=== PATIENT | female | born 1985 ===

== ENCOUNTER 2017-12-14 15:09 | Emergency (ER) | payer OTHER ==
[2017-12-14 15:17] VITALS: BMI 23.0
[2017-12-14 15:36] VITALS: TEMP 98.3
--- NOTE | 2017-12-14 15:40 | ED PDOC ---
Arrival/HPI - General Chief Complaint: Shortness Of Breath Time Seen by Provider: 12/14/17 15:14 - History of Present Illness Narrative History of Present Illness (Text): 32 y/o F c no PMHx p/w episodes of anxiety, shortness of breath, chest tightness , headaches. The patient is from [place] and the symptoms began after her was stationed in [place]. She had another panic attack while on the plane to the area. She states she has been alone a lot in the new apartment and it is lonely. She denies suicidal or homicidal ideations. Denies hallucinations. Between the panic attacks, the patient does not have any chest pain, dyspnea, or other symptoms. Past Medical History - Cardiac Hx Cardiac Disorders: No - Pulmonary Hx Respiratory Disorders: No - Neurological Hx Migraine: Yes - HEENT Hx HEENT Disorder: No - Renal Hx Renal Disorder: No - Endocrine/Metabolic Hx Endocrine Disorders: No - Hematological/Oncological Hx Blood Disorders: No - Integumentary Hx Dermatological Disorder: No - Musculoskeletal/Rheumatological Hx Musculoskeletal Disorders: No - Gastrointestinal Hx Gastrointestinal Disorders: No - Genitourinary/Gynecological Hx Genitourinary Disorders: No - Psychiatric Hx Psychophysiologic Disorder: Yes Hx Substance Use: No Other/Comment: panic attacks. Family/Social History Family/Social History: No Known Family HX Smoking Status: Never Smoked Hx Alcohol Use: No Hx Substance Use: No Allergies/Home Meds Allergies/Adverse Reactions: Allergies No Known Allergies Allergy (Verified 12/14/17 15:17) Home Medications: Home Meds Medication Instructions Recorded Confirmed No Known Home Med 12/14/17 12/14/17 Review of Systems - Physician Review All systems were reviewed & negative as marked: Yes - Review of Systems Constitutional: absent: Fevers Gastrointestinal: absent: Vomiting Physical Exam - Physical Exam Narrative Physical Exam (Text): Gen: NAD Head: NC/AT Eyes: PERRL ENT: MMM Neck: Supple Chest: No tenderness CV: Regular rate Lungs: CTA b/l Abd: Soft, NT Back: No CVA tenderness Extremities: No swelling Skin: No rash Neuro: Alert, CN II to XII intact, motor 5/5 x 4, no focal deficit Vital Signs Temp Pulse Resp BP Pulse Ox 12/14/17 17:27 83 18 99/61 L 98 12/14/17 15:28 18 98 12/14/17 15:26 98.3 F 85 18 132/69 100 Medical Decision Making ED Course and Treatment: EKG NSR 80 bpm, no T/T wave changes CXR no acute disease. Labs unremarkable. Patient with likely adjustment disorder. No indication for emergent psychiatric evaluation. PES set patient up with outpatient appointment. - Lab Interpretations Lab Results: 12/14/17 15:47 12/14/17 15:47 Lab Results 12/14/17 16:30: Urine Opiates Screen Negative, Urine Methadone Screen Negative, Ur Barbiturates Screen Positive H, Ur Phencyclidine Scrn Negative, Ur Amphetamines Screen Negative, U Benzodiazepines Scrn Negative, U Oth Cocaine Metabols Negative, U Cannabinoids Screen Negative 12/14/17 16:30: Urine Color Yellow, Urine Appearance Clear, Urine pH 6.0, Ur Specific [place] 1.020, Urine Protein Negative, Urine Glucose (UA) Negative, Urine Ketones Trace H, Urine Blood Small H, Urine Nitrate Negative, Urine Bilirubin Negative, Urine Urobilinogen 0.2, Ur Leukocyte Esterase Negative, Urine RBC 5 - 10, Urine WBC 0 - 2, Ur Epithelial Cells 4 - 5, Urine Bacteria Small, Urine HCG, Qual Negative 12/14/17 15:47: Alcohol, Quantitative < 10 12/14/17 15:47: Salicylates < 1 L, Acetaminophen < 10.0 L 12/14/17 15:47: Sodium 141, Potassium 4.1, Chloride 103, Carbon Dioxide 26, Anion Gap 16, BUN 14, Creatinine 0.6 L, Est GFR ( Amer) > 60, Est GFR ( Non-Af Amer) > 60, Random Glucose 137 H, Calcium 9.9, Total Bilirubin 0.4, AST 22, ALT 30, Alkaline Phosphatase 70, Total Protein 7.9, Albumin 4.5, Globulin 3.5, Albumin/Globulin Ratio 1.3 12/14/17 15:47: WBC 6.3, RBC 4.66, Hgb 12.3, Hct 36.0, MCV 77.3 L, MCH 26.4, MCHC 34.2, RDW 13.6, Plt Count 207, MPV 9.2, Gran % 72.4 H, Lymph % (Auto) 18.4 L, Arthur % (Auto) 7.3 H, Eos % (Auto) 1.6, Baso % (Auto) 0.3, Gran # 4.53, Lymph # (Auto) 1.2, Arthur # (Auto) 0.5, Eos # (Auto) 0.1, Baso # (Auto) 0.02 - RAD Interpretation Radiology Orders: 12/14/17 15:36 CHEST TWO VIEWS (PA/LAT) [RAD] Stat Disposition/Present on Arrival - Present on Arrival Any Indicators Present on Arrival: No History of DVT/PE: No History of Uncontrolled Diabetes: No Urinary Catheter: No History of Decub. Ulcer: No History Surgical Site Infection Following: None - Disposition Have Diagnosis and Disposition been Completed?: Yes Diagnosis: Anxiety Disposition: HOME/ ROUTINE Disposition Time: 17:30 Patient Plan: Discharge Condition: STABLE Discharge Instructions (ExitCare): Anxiety, Adult (DC), Adjustment Disorder Referrals: PCP,NO [Primary Care Provider] - Follow up with primary Forms: [employer] (Solomon Islander)
[2017-12-14 16:17] LABS: ALB/GLOB RATIO 1.3 (1.1-1.8); ALBUMIN 4.5 g/dL (3.0-4.8); ALT/SGPT 30 U/L (7-56); AST/SGOT 22 U/L (14-36); BLOOD UREA NITROGEN 14 mg/dL (7-21); CALCIUM 9.9 mg/dL (8.4-10.5); GFR AFRICAN-AMERICAN > 60; GFR NON-AFRICAN AMERICAN > 60
[2017-12-14 16:19] LABS: ACETAMINOPHEN < 10.0 ug/ml (10.0-20.0); SALICYLATE < 1 mg/dL (2.0-20.0)
[2017-12-14 16:20] LABS: BASO # 0.02 K/mm3 (0.0-2.0); BASO % 0.3 % (0.0-3.0); EOS # 0.1 (0.0-0.7); EOS % 1.6 % (1.5-5.0); GRAN # 4.53 (1.4-6.5); GRAN % 72.4 % (50.0-68.0); HEMOGLOBIN 12.3 g/dL (12.0-16.0); LYMPH # 1.2 (1.2-3.4); LYMPH % 18.4 % (22.0-35.0); MEAN CELL VOLUME 77.3 fl (80.0-105.0); MEAN CORPUSCULAR HEMOGLOBIN 26.4 pg (25.0-35.0); MEAN CORPUSCULAR HGB CONC 34.2 g/dl (31.0-37.0); MEAN PLATELET VOLUME 9.2 fl (7.0-11.0); MONO # 0.5 (0.1-0.6); MONO % 7.3 % (1.0-6.0); RBC 4.66 10^6/uL (3.5-6.1); RED CELL DISTRIBUTION WIDTH 13.6 % (11.5-14.5); WHITE BLOOD COUNT 6.3 10^3/ul (4.5-11.0)
[2017-12-14 16:54] LABS: URINE BILIRUBIN NEGATIVE (NEGATIVE); URINE BLOOD SMALL (NEGATIVE); URINE GLUCOSE (UA) NEGATIVE (NEGATIVE); URINE LEUKOCYTE ESTERASE NEGATIVE Leu/uL (NEGATIVE); URINE PROTEIN NEGATIVE mg/dL (<30 mg/dL); URINE UROBILINOGEN 0.2 E.U./dL (<1 E.U./dL)
[2017-12-14 16:55] LABS: URINE APPEARANCE CLEAR (CLEAR); URINE COLOR YELLOW (YELLOW)
[2017-12-14 16:56] LABS: HCG,QUALITATIVE URINE NEGATIVE (NEGATIVE)
[2017-12-14 17:02] LABS: URINE WBC 0 - 2 /hpf (0-6)
[2017-12-14 17:03] LABS: URINE BACTERIA SMALL (NEG)
[2017-12-14 17:15] LABS: BARBITURATES, UR POSITIVE (NEGATIVE); BENZODIAZEPINES, UR NEGATIVE (NEGATIVE); OPIATES, UR NEGATIVE (NEGATIVE); PHENCYCLIDINE, UR NEGATIVE (NEGATIVE)
[2017-12-14 17:31] VITALS: BP 99/61
[2017-12-14 17:43] VITALS: PULSE 82; RESP 19; O2SAT 99
--- NOTE | 2017-12-15 11:29 | CARD ---
APPROVED REPORT EKG Measurement Heart [id number] <Conclusion> Normal sinus rhythm Nonspecific T wave abnormality
== END 2017-12-14 17:43 | disposition home or self-care (01) ==
LOC: ED 15:09
DX: F41.9 Anxiety disorder, unspecified (principal)

== ENCOUNTER 2017-12-16 01:16 | Emergency (ER) | payer OTHER ==
[2017-12-16 01:16] VITALS: BMI 23.0
[2017-12-16 01:26] VITALS: PULSE 75
--- NOTE | 2017-12-16 01:45 | ED PDOC ---
Arrival/HPI - General Chief Complaint: Chest Pain Time Seen by Provider: 12/16/17 01:25 Historian: Patient - History of Present Illness Narrative History of Present Illness (Text): 12/16/17 01:38 Kenyetta Escalona is a 32 year old female, whose past medical history includes anxiety, who presents to the Emergency department complaining of palpitations. Patient states she was having trouble falling asleep tonight and took 1 Hydroxyzine 50 mg given to her by her mother a few days prior in [place]. Patient states after taking the medication she developed palpitations and chest discomfort. Patient was seen in the ER on 12/14/2017 for similar complaints, seen by PES, and instructed to follow-up outpatient for anxiety. Patient denies any oral contraceptive use, fever, chills, shortness of breath, abdominal pain, vomiting, headache, dizziness, or any other complaints. Time/Duration: Other (tonight) Symptom Onset: Gradual Symptom Course: Unchanged Activities at Onset: Light Context: Home Past Medical History - Provider Review Nursing Documentation Reviewed: Yes - Cardiac Hx Cardiac Disorders: No - Pulmonary Hx Respiratory Disorders: No - Neurological Hx Migraine: Yes - HEENT Hx HEENT Disorder: No - Renal Hx Renal Disorder: No - Endocrine/Metabolic Hx Endocrine Disorders: No - Hematological/Oncological Hx Blood Disorders: No - Integumentary Hx Dermatological Disorder: No - Musculoskeletal/Rheumatological Hx Musculoskeletal Disorders: No - Gastrointestinal Hx Gastrointestinal Disorders: No - Genitourinary/Gynecological Hx Genitourinary Disorders: No - Psychiatric Hx Psychophysiologic Disorder: Yes Hx Substance Use: No Other/Comment: panic attacks. Family/Social History - Physician Review Nursing Documentation Reviewed: Yes Family/Social History: Unknown Family HX Smoking Status: Never Smoked Hx Alcohol Use: No Hx Substance Use: No Allergies/Home Meds Allergies/Adverse Reactions: Allergies No Known Allergies Allergy (Verified 12/14/17 15:17) Home Medications: Home Meds Medication Instructions Recorded Confirmed No Known Home Med 12/14/17 12/14/17 Review of Systems - Physician Review All systems were reviewed & negative as marked: Yes - Review of Systems Constitutional: Normal. absent: Fevers Eyes: Normal ENT: Normal Respiratory: Normal. absent: SOB, Cough Cardiovascular: Palpitations Gastrointestinal: Normal. absent: Abdominal Pain, Nausea, Vomiting Genitourinary Female: Normal. absent: Dysuria, Frequency, Hematuria, Urine Output Changes Musculoskeletal: Normal. absent: Back Pain, Neck Pain Skin: Normal. absent: Rash Neurological: Normal. absent: Headache, Dizziness Endocrine: Normal Hemo/Lymphatic: Normal Psychiatric: Normal Physical Exam Vital Signs Reviewed: Yes Vital Signs Temp Pulse Resp BP Pulse Ox 12/16/17 01:23 97.5 F L 75 18 131/92 H 100 Temperature: Afebrile Blood Pressure: Normal Pulse: Regular Respiratory Rate: Normal Appearance: Positive for: Well-Appearing, Non-Toxic, Comfortable Pain Distress: None Mental Status: Positive for: Alert and Oriented X 3 - Systems Exam Head: Present: Atraumatic, Normocephalic Pupils: Present: PERRL Extroacular Muscles: Present: EOMI Conjunctiva: Present: Normal Mouth: Present: Moist Mucous Membranes Neck: Present: Normal Range of Motion Respiratory/Chest: Present: Clear to Auscultation, Good Air Exchange. No: Respiratory Distress, Accessory Muscle Use Cardiovascular: Present: Regular Rate and Rhythm, Normal S1, S2. No: Murmurs Abdomen: Present: Normal Bowel Sounds. No: Tenderness, Distention, Peritoneal Signs Back: Present: Normal Inspection Upper Extremity: Present: Normal Inspection. No: Cyanosis, Edema Lower Extremity: Present: Normal Inspection. No: Edema Neurological: Present: GCS=15, CN II-XII Intact, Speech Normal Skin: Present: Warm, Dry, Normal Color. No: Rashes Psychiatric: Present: Alert, Oriented x 3, Normal Insight, Normal Concentration Medical Decision Making ED Course and Treatment: 12/16/17 01:38 Impression: 32 year old female complaining of palpitations and chest discomfort. Plan: -- EKG -- Labs, cardiac enzymes -- Reassess and disposition Prior Visits: Notes and results from previous visits were reviewed. On 12/14/2017, pt was seen in the Emergency department for anxiety, shortness of breath, chest tightness, and headache. Pt was seen by PES, diagnosed with adjustment disorder/anxiety, and discharged home with outpatient f/u. Progress Notes: Reviewed EKG, NSR at [address]-segment elevations or depressions, no T-wave inversions, normal intervals. - Lab Interpretations Lab Results: 12/16/17 01:52 12/16/17 01:52 Lab Results 12/16/17 01:52: WBC 5.8, RBC 4.63, Hgb 12.4, Hct 35.4 L, MCV 76.5 L, MCH 26.8, MCHC 35.0, RDW 13.4, Plt Count 216, MPV 9.2 12/16/17 01:52: Sodium 141, Potassium 3.5 L, Chloride 102, Carbon Dioxide 26, Anion Gap 16, BUN 13, Creatinine 0.5 L, Est GFR ( Amer) > 60, Est GFR ( Non-Af Amer) > 60, Random Glucose 106, Calcium 10.0, Total Bilirubin 0.4, AST 25 , ALT 26, Alkaline Phosphatase 82, Lactate Dehydrogenase 441, Total Creatine Kinase 36, Troponin I < 0.01, Total Protein 8.1, Albumin 4.6, Globulin 3.5, Albumin/Globulin Ratio 1.3 - EKG Interpretation Interpreted by ED Physician: Yes Type: 12 lead EKG - Scribe Statement The provider has reviewed the documentation as recorded by the Scribfaisal Flores All medical record entries made by the Geraldineibfaisal were at my direction and personally dictated by me. I have reviewed the chart and agree that the record accurately reflects my personal performance of the history, physical exam, medical decision making, and the department course for this patient. I have also personally directed, reviewed, and agree with the discharge instructions and disposition. Disposition/Present on Arrival - Present on Arrival Any Indicators Present on Arrival: No History of DVT/PE: No History of Uncontrolled Diabetes: No Urinary Catheter: No History of Decub. Ulcer: No History Surgical Site Infection Following: None - Disposition Have Diagnosis and Disposition been Completed?: Yes Diagnosis: Anxiety, Adverse drug reaction Disposition: HOME/ ROUTINE Disposition Time: 03:55 Patient Plan: Discharge Condition: STABLE Discharge Instructions (ExitCare): Anxiety, Adult (DC), Adverse Drug Reactions , Adult (DC) Additional Instructions: Avoid non prescribed atarax meds/follow up with your doctor this week Forms: [employer] (Nepali)
[2017-12-16 02:17] LABS: ALB/GLOB RATIO 1.3 (1.1-1.8); ALBUMIN 4.6 g/dL (3.0-4.8); ALT/SGPT 26 U/L (7-56); AST/SGOT 25 U/L (14-36); BLOOD UREA NITROGEN 13 mg/dL (7-21); GFR AFRICAN-AMERICAN > 60; GFR NON-AFRICAN AMERICAN > 60
[2017-12-16 02:25] LABS: HEMOGLOBIN 12.4 g/dL (12.0-16.0); MEAN CELL VOLUME 76.5 fl (80.0-105.0); MEAN CORPUSCULAR HEMOGLOBIN 26.8 pg (25.0-35.0); MEAN PLATELET VOLUME 9.2 fl (7.0-11.0); RBC 4.63 10^6/uL (3.5-6.1); RED CELL DISTRIBUTION WIDTH 13.4 % (11.5-14.5); WHITE BLOOD COUNT 5.8 10^3/ul (4.5-11.0)
[2017-12-16 02:28] LABS: TROPONIN I < 0.01 ng/mL
[2017-12-16 04:19] VITALS: BP 109/75; RESP 17; TEMP 98; O2SAT 98
--- NOTE | 2017-12-16 10:35 | CARD ---
APPROVED REPORT EKG Measurement Heart [id number] <Conclusion> Normal sinus rhythm Normal ECG
== END 2017-12-16 04:19 | disposition home or self-care (01) ==
LOC: ED 01:16
DX: F41.9 Anxiety disorder, unspecified (principal); T43.595A Adverse effect of other antipsychotics and neuroleptics, initial encounter; Y92.89 Other specified places as the place of occurrence of the external cause

== ENCOUNTER 2017-12-18 23:58 | Emergency (ER) | payer OTHER ==
[2017-12-18 23:59] VITALS: BMI 23.0
[2017-12-19 00:25] VITALS: RESP 17; TEMP 97.4
[2017-12-19] MEDS ORDERED: DiphenhydrAMINE 50 mg/ml Inj IVP ONE (00:29)
[2017-12-19] MEDS ORDERED: Sodium Chloride 0.9% 1,000 ML IV SCH (00:30)
--- NOTE | 2017-12-19 00:33 | ED PDOC ---
Arrival/HPI - General Time Seen by Provider: 12/19/17 00:07 Historian: Technical Services Manager - History of Present Illness Narrative History of Present Illness (Text): 12/19/17 00:29 A 32 year old female, whose past medical history includes anxiety and migraines , presents to the emergency room complaining of a frontal headache since yesterday afternoon. Patient states symptoms are consistent with previous episodes of migraines and notes associated nausea. Patient denies dizziness, fevers, chills, abdominal pain, vomiting, diarrhea, or any other related symptoms. Time/Duration: Other (yesterday afternoon) Symptom Course: Unchanged Activities at Onset: Rest Context: Home Past Medical History - Provider Review Nursing Documentation Reviewed: Yes - Cardiac Hx Cardiac Disorders: No - Pulmonary Hx Respiratory Disorders: No - Neurological Hx Migraine: Yes - HEENT Hx HEENT Disorder: No - Renal Hx Renal Disorder: No - Endocrine/Metabolic Hx Endocrine Disorders: No - Hematological/Oncological Hx Blood Disorders: No - Integumentary Hx Dermatological Disorder: No - Musculoskeletal/Rheumatological Hx Musculoskeletal Disorders: No - Gastrointestinal Hx Gastrointestinal Disorders: No - Genitourinary/Gynecological Hx Genitourinary Disorders: No - Psychiatric Hx Psychophysiologic Disorder: Yes Hx Substance Use: No Other/Comment: panic attacks. Family/Social History - Physician Review Nursing Documentation Reviewed: Yes Family/Social History: No Known Family HX Smoking Status: Never Smoked Hx Alcohol Use: No Hx Substance Use: No Allergies/Home Meds Allergies/Adverse Reactions: Allergies No Known Allergies Allergy (Verified 12/14/17 15:17) Review of Systems - Physician Review All systems were reviewed & negative as marked: Yes - Review of Systems Constitutional: Normal. absent: Fevers, Night Sweats Eyes: Normal Respiratory: Normal. absent: SOB Cardiovascular: Normal. absent: Chest Pain Gastrointestinal: Normal, Nausea. absent: Abdominal Pain, Diarrhea, Vomiting Neurological: Headache. absent: Dizziness Physical Exam Vital Signs Reviewed: Yes Vital Signs Temp Pulse Resp BP Pulse Ox 12/19/17 03:49 68 17 100/68 100 12/19/17 00:24 97.4 F L 70 17 125/80 99 Temperature: Afebrile Blood Pressure: Normal Pulse: Regular Respiratory Rate: Normal Appearance: Positive for: Well-Appearing, Non-Toxic, Comfortable Pain Distress: None Mental Status: Positive for: Alert and Oriented X 3 - Systems Exam Head: Present: Atraumatic, Normocephalic Pupils: Present: PERRL Extroacular Muscles: Present: EOMI Conjunctiva: Present: Normal Mouth: Present: Moist Mucous Membranes Neck: Present: Normal Range of Motion Respiratory/Chest: Present: Clear to Auscultation, Good Air Exchange. No: Respiratory Distress, Accessory Muscle Use Cardiovascular: Present: Regular Rate and Rhythm, Normal S1, S2. No: Murmurs Abdomen: Present: Normal Bowel Sounds. No: Tenderness, Distention, Peritoneal Signs Back: Present: Normal Inspection Upper Extremity: Present: Normal Inspection. No: Cyanosis, Edema Lower Extremity: Present: Normal Inspection. No: Edema Neurological: Present: GCS=15, CN II-XII Intact, Speech Normal Skin: Present: Warm, Dry, Normal Color. No: Rashes Psychiatric: Present: Alert, Oriented x 3, Normal Insight, Normal Concentration Medical Decision Making ED Course and Treatment: 12/19/17 00:36 Impression: A 32 year old Female with migraines since yesterday afternoon. Differential Diagnosis included but are not limited to: migraines vs. tension headache Plan: -- Benadryl -- Reglan -- IV fluids -- Reassess and disposition Prior Visits: Notes and results from previous visits were reviewed. On 12/16/2017 patient came in complaining of palpitations. Patient was discharged home. Re-evaluation: 12/19/17 05:30 On re-evaluation, patient feels better and is in no acute distress. I have discussed the results and plan with the patient, who expresses understanding. Patient in agreement with plan to be discharged home. Patient is stable for discharge. Patient was instructed to follow up with physician or return if symptoms worsen or new concerning symptoms arise. - Medication Orders Current Medication Orders: Sodium Chloride (Sodium Chloride 0.9%) 1,000 mls @ 100 mls/hr IV .Q10H JESSIE Last Admin: 12/19/17 01:10 Dose: 100 mls/hr eMAR Start Stop Document 12/19/17 01:10 RD (Rec: 12/19/17 01:10 RD [id number]) Intravenous Solution Start Date 12/19/17 Start Time 01:10 Discontinued Medications Diphenhydramine HCl (Benadryl) 25 mg IVP ONCE ONE Stop: 12/19/17 00:30 Last Admin: 12/19/17 01:08 Dose: 25 mg IVP Administration Document 12/19/17 01:08 RD (Rec: 12/19/17 01:10 RD [id number]) Charges for Administration # of IVP Administrations 1 Metoclopramide HCl (Reglan) 10 mg IVP ONCE ONE Stop: 12/19/17 00:30 Last Admin: 12/19/17 01:11 Dose: 10 mg IVP Administration Document 12/19/17 01:11 RD (Rec: 12/19/17 01:11 RD [id number]) Charges for Administration # of IVP Administrations 1 - Scribe Statement The provider has reviewed the documentation as recorded by the Scribe Scribe Attestation: Lucy Albright under supervision by Yvonne Flores MD Scribe Attestation: All medical record entries made by the Scribe were at my direction and personally dictated by me. I have reviewed the chart and agree that the record accurately reflects my personal performance of the history, physical exam, medical decision making, and the department course for this patient. I have also personally directed, reviewed, and agree with the discharge instructions and disposition. Disposition/Present on Arrival - Present on Arrival Any Indicators Present on Arrival: No History of DVT/PE: No History of Uncontrolled Diabetes: No Urinary Catheter: No History Surgical Site Infection Following: None - Disposition Have Diagnosis and Disposition been Completed?: Yes Diagnosis: Migraine headache Disposition: HOME/ ROUTINE Disposition Time: 05:31 Patient Plan: Discharge Patient Problems: Current Active Problems Problem Status Onset Migraine headache Acute Condition: GOOD Discharge Instructions (ExitCare): Migraine Headache (DC) Additional Instructions: Rest/Take meds as prescribed/follow up with your doctor this week Prescriptions: Acetaminophen/Butalbital/Caf [Fioricet] 1 tab PO Q6 PRN #12 tab PRN Reason: Headache
[2017-12-19 05:41] VITALS: BP 102/62; PULSE 65; O2SAT 99
== END 2017-12-19 05:40 | disposition home or self-care (01) ==
LOC: ED 23:58
DX: G43.909 Migraine, unspecified, not intractable, without status migrainosus (principal)
CPT/HCPCS: 96374; 96375; 99285; J1200; J2765; J7040

== ENCOUNTER 2017-12-19 17:54 | Emergency (ER) | payer OTHER ==
[2017-12-19 17:55] VITALS: BMI 23.0
[2017-12-19 18:07] VITALS: BP 130/79; PULSE 82; RESP 17; TEMP 98.1; O2SAT 100
--- NOTE | 2017-12-19 18:27 | ED PDOC ---
"Arrival/HPI - General Chief Complaint: Chest Pain Time Seen by Provider: 12/19/17 18:17 Historian: Patient - History of Present Illness Narrative History of Present Illness (Text): 12/19/17 18:31 32 y/o female, psychiatric history including anxiety, nkda, c/o chest pain x 2 days which she recently flew [place] country. Pt. stated that she has anterior chest pain for the past 2 days, on and off, feels anxious out of no where, no homicidal or suicidal ideation, no auditory or visual hallucination, no night sweat, no rash, no palpitation, no change in vision, no leg or calf pain, no other medical or psychological complaints. Past Medical History - Provider Review Nursing Documentation Reviewed: Yes - Infectious Disease Hx of Infectious Diseases: None - Cardiac Hx Cardiac Disorders: No - Pulmonary Hx Respiratory Disorders: No - Neurological Hx Migraine: Yes - HEENT Hx HEENT Disorder: No - Renal Hx Renal Disorder: No - Endocrine/Metabolic Hx Endocrine Disorders: No - Hematological/Oncological Hx Blood Disorders: No - Integumentary Hx Dermatological Disorder: No - Musculoskeletal/Rheumatological Hx Musculoskeletal Disorders: No - Gastrointestinal Hx Gastrointestinal Disorders: No - Genitourinary/Gynecological Hx Genitourinary Disorders: No - Psychiatric Hx Psychophysiologic Disorder: Yes Hx Substance Use: No Other/Comment: panic attacks. Family/Social History - Physician Review Nursing Documentation Reviewed: Yes Family/Social History: Unknown Family HX Smoking Status: Never Smoked Hx Alcohol Use: No Hx Substance Use: No Allergies/Home Meds Allergies/Adverse Reactions: Allergies No Known Allergies Allergy (Verified 12/19/17 18:07) Review of Systems - Review of Systems Constitutional: absent: Fatigue, Fevers Eyes: absent: Vision Changes ENT: absent: Hearing Changes Respiratory: absent: SOB, Cough Cardiovascular: Chest Pain Gastrointestinal: absent: Abdominal Pain, Nausea, Vomiting Musculoskeletal: absent: Arthralgias Skin: absent: Rash, Pruritis Neurological: absent: Headache Psychiatric: Anxiety. absent: Depression, Suicidal Ideation Physical Exam Vital Signs Reviewed: Yes Vital Signs Temp Pulse Resp BP Pulse Ox 12/19/17 18:04 98.1 F 82 17 130/79 100 Temperature: Afebrile Blood Pressure: Normal Pulse: Regular Respiratory Rate: Normal Appearance: Positive for: Well-Appearing, Non-Toxic, Comfortable Pain Distress: Mild Mental Status: Positive for: Alert and Oriented X 3 - Systems Exam Head: Present: Atraumatic, Normocephalic Pupils: Present: PERRL Extroacular Muscles: Present: EOMI Conjunctiva: Present: Normal Mouth: Present: Moist Mucous Membranes Neck: Present: Normal Range of Motion Respiratory/Chest: Present: Clear to Auscultation, Good Air Exchange. No: Respiratory Distress, Accessory Muscle Use Cardiovascular: Present: Regular Rate and Rhythm, Normal S1, S2. No: Murmurs, Irregular Rhythm, Peripheal Pulses Present, Tachycardic, Bradycardic, Rub, Gallop, Muffled Abdomen: Present: Normal Bowel Sounds. No: Tenderness, Distention, Peritoneal Signs, Rebound, Guarding Back: Present: Normal Inspection Upper Extremity: Present: Normal Inspection. No: Cyanosis, Edema Lower Extremity: Present: Normal Inspection. No: Edema, CALF TENDERNESS, Mago' s Sign Neurological: Present: GCS=15, CN II-XII Intact, Speech Normal, Motor Func Grossly Intact, Gait Normal, Memory Normal Skin: Present: Warm, Dry, Normal Color. No: Rashes Psychiatric: Present: Alert, Oriented x 3, Normal Insight, Normal Concentration Medical Decision Making ED Course and Treatment: 12/19/17 18:33 -labs/ua/uds/thyroid profile -ekg -cxr -IVF/toradol/valium -Observe and reassess 12/19/17 20:34 -Pt. still complaining about the pain, pepcid 20mg ordered. 12/19/17 20:59 -EKG: NSR @ 80 BPM, no ST elevation or depression, no T wave inversion. -Chest xray show no active disease -CTA angiogram: No definite CT evidence of pulmonary embolism. -Labs show no acute findings except potassium 3.4 noted with potassium 20meq po ordered -Dimer is 277, CTA ordered. -UA show +UTI, rocephine ordered -Thyroid profile show no acute findings. -Pt. is currently asymptomatic, feeling much better, request to be discharged home, refused further care. -Discharge home with pepcid, naproxen, follow up with your own pmd and health care manager within 2 days, return to the ER for any new or worsening signs or symptoms. - Lab Interpretations Lab Results: 12/19/17 16:40 12/19/17 16:40 Lab Results 12/19/17 18:45: Urine Opiates Screen Negative, Urine Methadone Screen Negative, Ur Barbiturates Screen Positive H, Ur Phencyclidine Scrn Negative, Ur Amphetamines Screen Negative, U Benzodiazepines Scrn Negative, U Oth Cocaine Metabols Negative, U Cannabinoids Screen Negative 12/19/17 18:27: Urine Color Light yellow, Urine Appearance Sl cloudy, Urine pH > =9.0, Ur Specific [place] 1.015, Urine Protein Negative, Urine Glucose (UA) Negative, Urine Ketones Negative, Urine Blood Negative, Urine Nitrate Negative, Urine Bilirubin Negative, Urine Urobilinogen 1.0 H, Ur Leukocyte Esterase Small H, Urine RBC 0 - 2, Urine WBC 5 - 10, Ur Epithelial Cells 10 - 12, Amorphous Sediment Moderate, Urine Bacteria Mod 12/19/17 16:40: WBC 7.0 D, RBC 4.82, Hgb 12.8, Hct 36.8, MCV 76.3 L, MCH 26.6, MCHC 34.8, RDW 13.5, Plt Count 240, MPV 9.1, Gran % 75.8 H, Lymph % (Auto) 17.3 L, [place] % (Auto) 5.9, Eos % (Auto) 0.7 L, Baso % (Auto) 0.3, Gran # 5.27, Lymph # (Auto) 1.2, [place] # (Auto) 0.4, Eos # (Auto) 0.1, Baso # (Auto) 0.02 12/19/17 16:40: Free T4 1.33, TSH 3rd Generation 0.58, Alcohol, Quantitative < 10 12/19/17 16:40: Sodium 142, Potassium 3.4 L, Chloride 105, Carbon Dioxide 26, Anion Gap 15, BUN 12, Creatinine 0.6 L, Est GFR ( Amer) > 60, Est GFR ( Non-Af Amer) > 60, Random Glucose 103, Calcium 10.3, Magnesium 2.0, Total Bilirubin 0.4, AST 29, ALT 29, Alkaline Phosphatase 82, Lactate Dehydrogenase 468, Total Creatine Kinase 40, Troponin I < 0.01, Total Protein 8.4 H, Albumin 4.7, Globulin 3.6, Albumin/Globulin Ratio 1.3 12/19/17 16:40: D-Dimer, Quantitative 277 H - RAD Interpretation Radiology Orders: 12/19/17 ANGIO CHEST PE PROTOCOL [CT] Stat 12/19/17 19:00 CHEST PORTABLE [RAD] Stat Limitations: Motion artifact - moderate. Pulmonary arteries: No definite pulmonary embolism. Aorta: No aneurysm. No dissection. Lungs: No consolidation. Pleural space: No significant effusion. No pneumothorax. Heart: No cardiomegaly. No significant pericardial effusion. Bones/joints: No acute fracture. Soft tissues: Unremarkable. Lymph nodes: No pathologically enlarged lymph nodes. Kidneys and ureters: Small calculus vs contrast vs artifact within RIGHT kidney. IMPRESSION: 1. No definite CT evidence of pulmonary embolism. 2. Incidental/non-acute findings are described above. AFR[place] VELASQUEZ | Final Radiology Report CONFIDENTIALITY STATEMENT This report is intended only for use by the referring physician, and only in accordance with law. If you received this in error, call [phone]. Page 2 of 2 Thank you for allowing us to participate in the care of your patient. Dictated and Authenticated by: Vaibhav Maradiaga MD 12/19/2017 8:56 PM Eastern Time ([place] & [place]) Chest xray: Casket Upholsterer: Radiologist - EKG Interpretation EKG Interpretation (Text): 12/19/17 18:34 -EKG: NSR @ 80 BPM, no ST elevation or depression, no T wave inversion. Interpreted by ED Physician: Yes Type: 12 lead EKG Comparison: Com.w/previous EKG - Medication Orders Current Medication Orders: Discontinued Medications Diazepam (Valium) 5 mg PO ONCE ONE PRN Reason: Protocol Stop: 12/19/17 19:06 Last Admin: 12/19/17 19:14 Dose: Not Given Non-Admin Reason: Patient Refused Famotidine (Pepcid) 20 mg IVP STAT STA Stop: 12/19/17 20:35 Sodium Chloride (Sodium Chloride 0.9%) 1,000 mls @ 999 mls/hr IV .Q1H1M STA Stop: 12/19/17 19:28 Last Admin: 12/19/17 18:42 Dose: 999 mls/hr eMAR Start Stop Document 12/19/17 18:42 RR (Rec: 12/19/17 18:42 [id number] Intravenous Solution Start Date 12/19/17 Start Time 18:42 Ketorolac Tromethamine (Toradol) 30 mg IVP STAT STA Stop: 12/19/17 19:06 Last Admin: 12/19/17 19:14 Dose: 30 mg MAR Pain Assessment Document 12/19/17 19:14 RR (Rec: 12/19/17 19:14 RR [id number] Pain Reassessment Is this a pain reassessment? 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 Disposition/Present on Arrival - Present on Arrival Any Indicators Present on Arrival: No History of DVT/PE: No History of Uncontrolled Diabetes: No Urinary Catheter: No History of Decub. Ulcer: No History Surgical Site Infection Following: None - Disposition Have Diagnosis and Disposition been Completed?: Yes Diagnosis: Hypokalemia, Atypical chest pain Disposition: HOME/ ROUTINE Disposition Time: 19:08 Patient Plan: Discharge Patient Problems: Current Active Problems Problem Status Onset Hypokalemia Acute Condition: GOOD Discharge Instructions (ExitCare): Chest Pain (ED) Additional Instructions: -Discharge home with pepcid, naproxen, follow up with your own pmd and health care manager within 2 days, return to the ER for any new or worsening signs or symptoms. Prescriptions: Famotidine [Pepcid] 20 mg PO BID #20 tab Naproxen 500 mg PO BID PRN #20 tablet PRN Reason: Other Referrals: Kear Llamas, [Primary Care Provider] - Follow up with primary Nolvia Samuel MD [Staff Provider] - Follow up with primary [facility] [place] [facility] [Outside] - Follow up with primary Forms: WORK NOTE"
[2017-12-19] MEDS ORDERED: Sodium Chloride 0.9% 1,000 ML IV STA (18:28)
[2017-12-19 18:55] LABS: BASO # 0.02 K/mm3 (0.0-2.0); BASO % 0.3 % (0.0-3.0); EOS # 0.1 (0.0-0.7); EOS % 0.7 % (1.5-5.0); GRAN # 5.27 (1.4-6.5); GRAN % 75.8 % (50.0-68.0); HEMOGLOBIN 12.8 g/dL (12.0-16.0); LYMPH # 1.2 (1.2-3.4); LYMPH % 17.3 % (22.0-35.0); MEAN CELL VOLUME 76.3 fl (80.0-105.0); MEAN CORPUSCULAR HEMOGLOBIN 26.6 pg (25.0-35.0); MEAN CORPUSCULAR HGB CONC 34.8 g/dl (31.0-37.0); MEAN PLATELET VOLUME 9.1 fl (7.0-11.0); MONO # 0.4 (0.1-0.6); MONO % 5.9 % (1.0-6.0); RBC 4.82 10^6/uL (3.5-6.1); RED CELL DISTRIBUTION WIDTH 13.5 % (11.5-14.5)
[2017-12-19 19:04] LABS: ALB/GLOB RATIO 1.3 (1.1-1.8); ALBUMIN 4.7 g/dL (3.0-4.8); ALT/SGPT 29 U/L (7-56); AST/SGOT 29 U/L (14-36); BLOOD UREA NITROGEN 12 mg/dL (7-21); CALCIUM 10.3 mg/dL (8.4-10.5); GFR AFRICAN-AMERICAN > 60; GFR NON-AFRICAN AMERICAN > 60
[2017-12-19] MEDS ORDERED: Potassium Chloride 20 mEq ER Tab PO STA (19:05)
[2017-12-19 19:10] LABS: PH,URINE >=9.0 (4.7-8.0); URINE BILIRUBIN NEGATIVE (NEGATIVE); URINE BLOOD NEGATIVE (NEGATIVE); URINE GLUCOSE (UA) NEGATIVE (NEGATIVE); URINE LEUKOCYTE ESTERASE SMALL Leu/uL (NEGATIVE); URINE PROTEIN NEGATIVE mg/dL (<30 mg/dL)
[2017-12-19 19:15] LABS: TROPONIN I < 0.01 ng/mL
[2017-12-19 19:21] LABS: FREE T4 1.33 ng/dL (0.78-2.19)
[2017-12-19 19:22] LABS: URINE APPEARANCE SL CLOUDY (CLEAR); URINE COLOR LIGHT YELLOW (YELLOW)
[2017-12-19 19:27] LABS: URINE AMORPHOUS SEDIMENT MODERATE; URINE BACTERIA MOD (NEG); URINE RBC 0 - 2 /hpf (0-2)
[2017-12-19 19:29] LABS: BARBITURATES, UR POSITIVE (NEGATIVE); BENZODIAZEPINES, UR NEGATIVE (NEGATIVE); OPIATES, UR NEGATIVE (NEGATIVE); PHENCYCLIDINE, UR NEGATIVE (NEGATIVE)
[2017-12-19] MEDS ORDERED: Iohexol 350 MG/100 ML VIAL ONE (19:51)
--- NOTE | 2017-12-19 20:56 | CT ---
EXAM: CT Angiography Chest With Intravenous Contrast CLINICAL HISTORY: 32 years old, female; Pain; Chest pain; Type not specified; Additional info: R/O pe TECHNIQUE: Axial computed tomographic angiography images of the chest with intravenous contrast using pulmonary embolism protocol. All CT scans at this facility use one or more dose reduction techniques, viz.: automated exposure control; ma/kV adjustment per patient size (including targeted exams where dose is matched to indication; i.e. head); or iterative reconstruction technique. MIP reconstructed images were created and reviewed. Coronal and sagittal reformatted images were created and reviewed. CONTRAST: 100 mL of OMNI 350 administered intravenously. COMPARISON: DX - CHEST PORTABLE 2017-12-19 18:59 FINDINGS: Limitations: Motion artifact - moderate. Pulmonary arteries: No definite pulmonary embolism. Aorta: No aneurysm. No dissection. Lungs: No consolidation. Pleural space: No significant effusion. No pneumothorax. Heart: No cardiomegaly. No significant pericardial effusion. Bones/joints: No acute fracture. Soft tissues: Unremarkable. Lymph nodes: No pathologically enlarged lymph nodes. Kidneys and ureters: Small calculus vs contrast vs artifact within RIGHT kidney. IMPRESSION: 1. No definite CT evidence of pulmonary embolism. 2. Incidental/non-acute findings are described above.
--- NOTE | 2017-12-20 08:41 | RAD ---
HISTORY: CHEST PAIN X 2DAYS COMPARISON: 12/14/2017. FINDINGS: LUNGS: The lungs are well inflated and clear. PLEURA: No significant pleural effusion identified, no pneumothorax apparent. CARDIOVASCULAR: Normal. OSSEOUS STRUCTURES: No significant abnormalities. VISUALIZED UPPER ABDOMEN: Normal. OTHER FINDINGS: None. IMPRESSION: No active pulmonary disease.
--- NOTE | 2017-12-20 10:08 | CARD ---
APPROVED REPORT EKG Measurement Heart [id number] <Conclusion> Normal sinus rhythm Normal ECG
== END 2017-12-19 21:10 | disposition home or self-care (01) ==
LOC: ED 17:54
DX: R07.89 Other chest pain (principal); E87.6 Hypokalemia
CPT/HCPCS: 71045; 71275; 80053; 80320; 80324; 80345; 80346; 80349; 80353; 80358; 80361; 81001; 82550; 83615; 83735; 83992; 84439; 84443; 84484; 85025; 85378; 87086; 93005; 96374; 99283; J1885; J7040; Q9967

== ENCOUNTER 2018-01-04 12:04 | Emergency (ER) | payer OTHER ==
[2018-01-04 12:05] VITALS: BMI 23.0
[2018-01-04 12:14] VITALS: TEMP 98
--- NOTE | 2018-01-04 12:36 | ED PDOC ---
Arrival/HPI - General Historian: Patient - History of Present Illness Time/Duration: Other (since yesterday) Context: Home <Diamond Edward P - Last Filed: 01/04/18 14:33> <Anali Max - Last Filed: 01/06/18 21:21> - General Chief Complaint: Dizziness/Lightheaded Time Seen by Provider: 01/04/18 12:36 - History of Present Illness Narrative History of Present Illness (Text): 01/04/18 12:36 This 32 yo female with a pmh anxiety, and depression, presents to this ED c/o intermittent dizziness since yesterday. Patient stated her menstruation has been irregular this month, and since then she has been feeling dizzy. Patient denies sob, cp, abdominal pain, fever, n/v, urinary symptoms, or abnormal gait. PERC negative for PE LMP: today (Diamond Edward) Past Medical History - Provider Review Nursing Documentation Reviewed: Yes - Infectious Disease Hx of Infectious Diseases: None - Cardiac Hx Cardiac Disorders: No - Pulmonary Hx Respiratory Disorders: No - Neurological Hx Neurological Disorder: Yes Hx Migraine: Yes - HEENT Hx HEENT Disorder: No - Renal Hx Renal Disorder: No - Endocrine/Metabolic Hx Endocrine Disorders: No - Hematological/Oncological Hx Blood Disorders: No - Integumentary Hx Dermatological Disorder: No - Musculoskeletal/Rheumatological Hx Musculoskeletal Disorders: No - Gastrointestinal Hx Gastrointestinal Disorders: No - Genitourinary/Gynecological Hx Genitourinary Disorders: No - Psychiatric Hx Psychophysiologic Disorder: No Hx Substance Use: No Other/Comment: DENIED <Diamond Edward P - Last Filed: 01/04/18 14:33> Family/Social History - Physician Review Nursing Documentation Reviewed: Yes Family/Social History: Other (noncontributory) Smoking Status: Never Smoked Hx Alcohol Use: No Hx Substance Use: No <Sussy Edwardim P - Last Filed: 01/04/18 14:33> Allergies/Home Meds <EdwardSussy reganim P - Last Filed: 01/04/18 14:33> <Anali Max - Last Filed: 01/06/18 21:21> Allergies/Adverse Reactions: Allergies No Known Allergies Allergy (Verified 01/04/18 12:07) Review of Systems - Review of Systems Constitutional: Normal. absent: Fatigue, Weight Change, Fevers Eyes: Normal ENT: Normal Respiratory: Normal. absent: SOB, Cough Cardiovascular: Normal. absent: Chest Pain, Palpitations Gastrointestinal: Normal. absent: Abdominal Pain, Nausea, Vomiting Genitourinary Female: Normal. absent: Dysuria, Frequency Musculoskeletal: Normal Skin: Normal Neurological: Normal, Dizziness. absent: Headache, Focal Weakness, Gait Changes , Speech Changes Endocrine: Normal Hemo/Lymphatic: Normal Psychiatric: Anxiety. absent: Depression, Suicidal Ideation <Diamond Edward P - Last Filed: 01/04/18 14:33> Physical Exam Temperature: Afebrile Blood Pressure: Normal Pulse: Regular Respiratory Rate: Normal Appearance: Positive for: Well-Appearing, Non-Toxic, Comfortable Pain Distress: None Mental Status: Positive for: Alert and Oriented X 3 - Systems Exam Head: Present: Atraumatic, Normocephalic Pupils: Present: PERRL Extroacular Muscles: Present: EOMI Conjunctiva: Present: Normal Mouth: Present: Moist Mucous Membranes Neck: Present: Normal Range of Motion Respiratory/Chest: Present: Clear to Auscultation, Good Air Exchange. No: Respiratory Distress, Accessory Muscle Use Cardiovascular: Present: Regular Rate and Rhythm, Normal S1, S2. No: Murmurs Abdomen: No: Tenderness, Distention, Peritoneal Signs Genitourinary/Pelvic Exam: Present: Other (deferred) Back: Present: Normal Inspection Upper Extremity: Present: Normal Inspection. No: Cyanosis, Edema Lower Extremity: Present: Normal Inspection. No: Edema Neurological: Present: GCS=15, CN II-XII Intact, Speech Normal, Motor Func Grossly Intact, Normal Sensory Function, Normal Cerebellar Funct, Gait Normal, Memory Normal Skin: Present: Warm, Dry, Normal Color. No: Rashes Psychiatric: Present: Alert, Oriented x 3, Anxious. No: Depressed Mood, Suicidal Ideation, Homicidal Ideation, Delusional, Hallucinations, Intoxicated <Diamond Edward P - Last Filed: 01/04/18 14:33> Vital Signs Temp Pulse Resp BP Pulse Ox 01/04/18 14:44 73 18 112/79 100 01/04/18 12:09 98.0 F 86 16 109/74 98 Medical Decision Making Re-evaluation Time: 14:33 Reassessment Condition: Re-examined, Improved - Lab Interpretations I have reviewed the lab results: Yes Interpretation: No clinic. lab abnormalty - EKG Interpretation Interpreted by ED Physician: Yes (NSR @ [address] changes) Type: 12 lead EKG Comparison: No previous EKG avail. <Diamond Edward - Last Filed: 01/04/18 14:33> <WinterDarrinPatricia - Last Filed: 01/06/18 21:21> ED Course and Treatment: 01/04/18 14:33 Re-evaluation. Patient feels better. Discussed results and plan with patient who expresses understanding. All questions answered and there is agreement with the plan to discharge home with instructions. Patient stable for discharge. Return if symptoms persist or worsen. (Diamond Edward) - Lab Interpretations Microbiology Results: Microbiology Results 01/04/18 23:26 Urine,Clean Catch Urine Culture - Final No Growth (<1,000 CFU/ML) Lab Results: 01/04/18 13:00 01/04/18 13:00 Lab Results 01/04/18 13:09: POC Glucose (mg/dL) 96 01/04/18 13:00: Urine Color Yellow, Urine Appearance Clear, Urine pH 6.0, Ur Specific [place] 1.020, Urine Protein Negative, Urine Glucose (UA) Negative, Urine Ketones 15 H, Urine Blood Moderate H, Urine Nitrate Negative, Urine Bilirubin Negative, Urine Urobilinogen 1.0 H, Ur Leukocyte Esterase Small H, Urine RBC 1 - 3, Urine WBC 0 - 2, Ur Epithelial Cells 6 - 8, Urine Bacteria Mod , Urine HCG, Qual Negative 01/04/18 13:00: Sodium 142, Potassium 3.9, Chloride 102, Carbon Dioxide 28, Anion Gap 15, BUN 15, Creatinine 0.5 L, Est GFR ( Amer) > 60, Est GFR ( Non-Af Amer) > 60, Random Glucose 101, Calcium 10.0, Total Bilirubin 0.5, AST 24 , ALT 26, Alkaline Phosphatase 65, Total Protein 8.1, Albumin 4.6, Globulin 3.6 , Albumin/Globulin Ratio 1.3 01/04/18 13:00: WBC 4.3 L D, RBC 4.71, Hgb 12.5, Hct 36.6, MCV 77.7 L, MCH 26.5 , MCHC 34.2, RDW 13.7, Plt Count 200, MPV 9.4, Gran % 71.8 H, Lymph % (Auto) 21.0 L, [place] % (Auto) 5.8, Eos % (Auto) 1.2 L, Baso % (Auto) 0.2, Gran # 3.11, Lymph # (Auto) 0.9 L, [place] # (Auto) 0.3, Eos # (Auto) 0.1, Baso # (Auto) 0.01 - RAD Interpretation Narrative RAD Interpretations (Text): 01/04/18 14:14 PROCEDURE: CT HEAD WITHOUT CONTRAST. FINDINGS: HEMORRHAGE: No intracranial hemorrhage. BRAIN: No mass effect or edema. No atrophy or chronic microvascular ischemic changes. VENTRICLES: Unremarkable. No hydrocephalus. CALVARIUM: Unremarkable. PARANASAL SINUSES: Unremarkable as visualized. No significant inflammatory changes. MASTOID AIR CELLS: Unremarkable as visualized. No inflammatory changes. OTHER FINDINGS: None. IMPRESSION: No acute findings (Diamond Edward) Radiology Orders: 01/04/18 12:50 HEAD W/O CONTRAST [CT] Stat CHEST PORTABLE [RAD] Stat - Medication Orders Current Medication Orders: Discontinued Medications Sodium Chloride (Sodium Chloride 0.9%) 1,000 mls @ 999 mls/hr IV .Q1H1M STA Stop: 01/04/18 13:48 Last Admin: 01/04/18 13:19 Dose: 999 mls/hr eMAR Start Stop Document 01/04/18 13:19 SF (Rec: 01/04/18 13:19 SF [id number]) Intravenous Solution Start Date 01/04/18 Start Time 13:19 End Date 01/04/18 End time 14:20 Total Infusion Time 61 Meclizine HCl (Antivert) 50 mg PO STAT STA Stop: 01/04/18 12:50 Last Admin: 01/04/18 13:18 Dose: 50 mg - 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 <Anali Max - Last Filed: 01/06/18 21:21> Disposition/Present on Arrival - Present on Arrival Any Indicators Present on Arrival: No History of DVT/PE: No History of Uncontrolled Diabetes: No Urinary Catheter: No History of Decub. Ulcer: No History Surgical Site Infection Following: None - Disposition Have Diagnosis and Disposition been Completed?: Yes Disposition Time: 14:34 Patient Plan: Discharge <EdwardDiamond regan - Last Filed: 01/04/18 14:33> <Anali Max - Last Filed: 01/06/18 21:21> - Disposition Diagnosis: Dizziness Disposition: HOME/ ROUTINE Condition: GOOD Discharge Instructions (ExitCare): Vertigo (a Type of Dizziness) (DC) Additional Instructions: Call private doctor for follow up visit in 1-2 days. Take medication as instructed with food. Do not drive or operate machinery if you are taking Meclizine for at least 8 hours. Prescriptions: Meclizine [Meclizine*] 25 mg PO Q6 PRN #30 tab PRN Reason: Dizziness Referrals: Milan Mina DO [Staff Provider] - Follow up with primary PCP,NO [Primary Care Provider] - Follow up with primary Forms: [employer] ([place]), WORK NOTE
[2018-01-04] MEDS ORDERED: Sodium Chloride 0.9% 1,000 ML IV STA (12:48)
[2018-01-04 13:13] LABS: URINE BILIRUBIN NEGATIVE (NEGATIVE); URINE BLOOD MODERATE (NEGATIVE); URINE GLUCOSE (UA) NEGATIVE (NEGATIVE); URINE LEUKOCYTE ESTERASE SMALL Leu/uL (NEGATIVE); URINE PROTEIN NEGATIVE mg/dL (<30 mg/dL)
[2018-01-04 13:17] LABS: URINE APPEARANCE CLEAR (CLEAR); URINE COLOR YELLOW (YELLOW)
[2018-01-04 13:18] LABS: HCG,QUALITATIVE URINE NEGATIVE (NEGATIVE)
[2018-01-04 13:19] LABS: BASO # 0.01 K/mm3 (0.0-2.0); BASO % 0.2 % (0.0-3.0); EOS # 0.1 (0.0-0.7); EOS % 1.2 % (1.5-5.0); GRAN # 3.11 (1.4-6.5); GRAN % 71.8 % (50.0-68.0); HEMOGLOBIN 12.5 g/dL (12.0-16.0); LYMPH # 0.9 (1.2-3.4); MEAN CELL VOLUME 77.7 fl (80.0-105.0); MEAN CORPUSCULAR HEMOGLOBIN 26.5 pg (25.0-35.0); MEAN CORPUSCULAR HGB CONC 34.2 g/dl (31.0-37.0); MEAN PLATELET VOLUME 9.4 fl (7.0-11.0); MONO # 0.3 (0.1-0.6); MONO % 5.8 % (1.0-6.0); RBC 4.71 10^6/uL (3.5-6.1); RED CELL DISTRIBUTION WIDTH 13.7 % (11.5-14.5); WHITE BLOOD COUNT 4.3 10^3/ul (4.5-11.0)
[2018-01-04 13:41] LABS: ALB/GLOB RATIO 1.3 (1.1-1.8); ALBUMIN 4.6 g/dL (3.0-4.8); ALT/SGPT 26 U/L (7-56); AST/SGOT 24 U/L (14-36); BLOOD UREA NITROGEN 15 mg/dL (7-21); GFR AFRICAN-AMERICAN > 60; GFR NON-AFRICAN AMERICAN > 60
--- NOTE | 2018-01-04 13:59 | RAD ---
HISTORY: Dizziness COMPARISON: 12/19/2017. FINDINGS: LUNGS: The lungs are well inflated and clear. PLEURA: No significant pleural effusion identified, no pneumothorax apparent. CARDIOVASCULAR: Normal. OSSEOUS STRUCTURES: No significant abnormalities. VISUALIZED UPPER ABDOMEN: Normal. OTHER FINDINGS: None. IMPRESSION: No active pulmonary disease.
--- NOTE | 2018-01-04 14:02 | CT ---
PROCEDURE: CT HEAD WITHOUT CONTRAST. HISTORY: dizziness COMPARISON: None available. TECHNIQUE: Axial computed tomography images were obtained through the head/brain without intravenous contrast. Radiation dose: Total exam DLP = 935 mGy-cm. This CT exam was performed using one or more of the following dose reduction techniques: Automated exposure control, adjustment of the mA and/or kV according to patient size, and/or use of iterative reconstruction technique. FINDINGS: HEMORRHAGE: No intracranial hemorrhage. BRAIN: No mass effect or edema. No atrophy or chronic microvascular ischemic changes. VENTRICLES: Unremarkable. No hydrocephalus. CALVARIUM: Unremarkable. PARANASAL SINUSES: Unremarkable as visualized. No significant inflammatory changes. MASTOID AIR CELLS: Unremarkable as visualized. No inflammatory changes. OTHER FINDINGS: None. IMPRESSION: No acute findings
[2018-01-04 14:15] LABS: URINE BACTERIA MOD (NEG); URINE WBC 0 - 2 /hpf (0-6)
--- NOTE | 2018-01-04 14:27 | CARD ---
APPROVED REPORT EKG Measurement Heart [id number] <Conclusion> Normal sinus rhythm Nonspecific ST abnormality Abnormal ECG
[2018-01-04 14:45] VITALS: BP 112/79; PULSE 73; RESP 18; O2SAT 100
== END 2018-01-04 14:45 | disposition home or self-care (01) ==
LOC: ED 12:04
DX: R42 Dizziness and giddiness (principal)
CPT/HCPCS: 70450; 71045; 80053; 81001; 82948; 84703; 85025; 87086; 93005; 96360; 99285; J7040

== ENCOUNTER 2018-02-01 11:46 | Emergency (ER) | payer OTHER ==
[2018-02-01 11:47] VITALS: BMI 23.0
[2018-02-01 12:19] VITALS: TEMP 98.9
[2018-02-01] MEDS ORDERED: Sodium Chloride 0.9% 1,000 ML IV STA (12:37)
--- NOTE | 2018-02-01 12:42 | ED PDOC ---
Arrival/HPI - General Chief Complaint: GI Problem Time Seen by Provider: 02/01/18 12:37 Historian: Patient - History of Present Illness Narrative History of Present Illness (Text): 02/01/18 12:38 A 32 year old female, who denies any past medical history, presents to the emergency department complaining of severe right flank pain for 1 week. Patient speaks Bermudian, history obtained through scribe. Patient notes radiating pain to right lower abdomen and notes associated nausea. Patient reports similar complaints a few years ago when diagnosed with kidney stones. Patient secondarily reports constipation for 3 days, but denies any fever, chills, vomiting, urinary symptoms, vaginal bleeding, chest pain, shortness of breath or any other complaints. Time/Duration: 1 week Symptom Course: Unchanged Severity Level: Severe Context: Home Past Medical History - Provider Review Nursing Documentation Reviewed: Yes - Infectious Disease Hx of Infectious Diseases: None - Cardiac Hx Cardiac Disorders: No - Pulmonary Hx Respiratory Disorders: No - Neurological Hx Neurological Disorder: Yes Hx Dizziness: Yes Hx Migraine: Yes - HEENT Hx HEENT Disorder: No - Renal Hx Renal Disorder: No - Endocrine/Metabolic Hx Endocrine Disorders: No - Hematological/Oncological Hx Blood Disorders: No - Integumentary Hx Dermatological Disorder: No - Musculoskeletal/Rheumatological Hx Musculoskeletal Disorders: No - Gastrointestinal Hx Gastrointestinal Disorders: No - Genitourinary/Gynecological Hx Genitourinary Disorders: No - Psychiatric Hx Psychophysiologic Disorder: No Hx Substance Use: No Family/Social History - Physician Review Nursing Documentation Reviewed: Yes Family/Social History: No Known Family HX Smoking Status: Never Smoked Hx Alcohol Use: No Hx Substance Use: No Allergies/Home Meds Allergies/Adverse Reactions: Allergies No Known Allergies Allergy (Verified 02/01/18 12:12) Review of Systems - Physician Review All systems were reviewed & negative as marked: Yes - Review of Systems Constitutional: absent: Fevers, Night Sweats Respiratory: absent: SOB Cardiovascular: absent: Chest Pain Gastrointestinal: Constipation, Nausea. absent: Vomiting Genitourinary Female: absent: Dysuria, Frequency, Hematuria, Vaginal Bleeding Musculoskeletal: Back Pain (right flank pain radiating to right lower abdomen) Physical Exam - Physical Exam Narrative Physical Exam (Text): Constitutional: No acute distress. Head: Normocephalic. Atraumatic. Eyes: PERRL. ENT: Moist mucous membranes. Neck: Supple. Cardiovascular: Regular rate. Chest: No tenderness. Respiratory: Clear to auscultation bilaterally. GI: Soft. Nontender. Nondistended. Back: No CVA tenderness. Musculoskeletal: No tenderness or swelling of extremities. Skin: No rash. Neurologic: Alert, no focal deficit. Vital Signs Reviewed: Yes Vital Signs Temp Pulse Resp BP Pulse Ox 02/01/18 12:14 98.9 F 100 H 16 111/77 99 Temperature: Afebrile Blood Pressure: Normal Pulse: Regular Respiratory Rate: Normal Appearance: Positive for: Well-Appearing, Non-Toxic, Comfortable Pain Distress: None Mental Status: Positive for: Alert and Oriented X 3 Medical Decision Making ED Course and Treatment: 02/01/18 12:38 Impression: A 32 year old female with right flank pain radiating to abdomen. Patient notes nausea. Hx of kidney stones in the past. Plan: -- Abdomen and pelvis CT -- Labs -- Urine culture and Urinalysis -- Toraold, Zofran and IV fluids -- Reassess and disposition Progress Notes: 02/01/18 14:02 FINDINGS: LOWER THORAX: Unremarkable. LIVER: Unremarkable. No gross lesion or ductal dilatation. GALLBLADDER AND BILE DUCTS: Unremarkable. PANCREAS: Unremarkable. No gross lesion or ductal dilatation. SPLEEN: Unremarkable. ADRENALS: Unremarkable. No mass. KIDNEYS AND URETERS: There several small stones in the right kidney measuring 3 mm or less. There are no ureteral stones demonstrated. There is a phlebolith adjacent to the right distal ureter. There is no hydronephrosis. VASCULATURE: Unremarkable. No aortic aneurysm. BOWEL: Unremarkable. No obstruction. No gross mural thickening. APPENDIX: Unremarkable. Normal appendix. PERITONEUM: Unremarkable. No free fluid. No free air. LYMPH NODES: Unremarkable. No enlarged lymph nodes. BLADDER: Unremarkable. REPRODUCTIVE: Unremarkable. BONES: No acute fracture. OTHER FINDINGS: None. IMPRESSION: Right-sided nephrolithiasis. No evidence of urolithiasis. Patient states she feels much better. Will discharge, no active kidney stone causing any nephrolithiasis and significant amount of stool seen on imaging, will prescribe medications. - Lab Interpretations Lab Results: 02/01/18 13:00 02/01/18 13:00 Lab Results 02/01/18 13:00: Sodium 145, Potassium 3.8, Chloride 105, Carbon Dioxide 27, Anion Gap 16, BUN 10, Creatinine 0.5 L, Est GFR ( Amer) > 60, Est GFR ( Non-Af Amer) > 60, Random Glucose 142 H, Calcium 9.3, Total Bilirubin 0.4, AST 28, ALT 21, Alkaline Phosphatase 57, Total Protein 7.7, Albumin 4.6, Globulin 3.1, Albumin/Globulin Ratio 1.5, Lipase 135 02/01/18 13:00: WBC 4.5, RBC 4.45, Hgb 12.0, Hct 34.5 L, MCV 77.5 L, MCH 27.0, MCHC 34.8, RDW 13.8, Plt Count 200, MPV 9.2, Gran % 75.7 H, Lymph % (Auto) 18.6 L, [place] % (Auto) 4.4, Eos % (Auto) 1.1 L, Baso % (Auto) 0.2, Gran # 3.41, Lymph # (Auto) 0.8 L, [place] # (Auto) 0.2, Eos # (Auto) 0.1, Baso # (Auto) 0.01 02/01/18 12:30: Urine Color Yellow, Urine Appearance Clear, Urine pH 7.0, Ur Specific [place] 1.020, Urine Protein Trace H, Urine Glucose (UA) 100 H, Urine Ketones Negative, Urine Blood Negative, Urine Nitrate Negative, Urine Bilirubin Negative, Urine Urobilinogen 1.0 H, Ur Leukocyte Esterase Small H, Urine RBC 0 - 2, Urine WBC 5 - 10, Ur Epithelial Cells 4 - 5, Amorphous Sediment Few, Urine Bacteria Many, Urine Other Uyeast, Urine HCG, Qual Negative I have reviewed the lab results: Yes - RAD Interpretation Radiology Orders: 02/01/18 12:38 ABD & PELVIS W/O PO OR IV CONT [CT] Stat - Medication Orders Current Medication Orders: Discontinued Medications Sodium Chloride (Sodium Chloride 0.9%) 1,000 mls @ 999 mls/hr IV .Q1H1M STA Stop: 02/01/18 13:37 Last Admin: 02/01/18 13:22 Dose: 999 mls/hr eMAR Start Stop Document 02/01/18 13:22 SF (Rec: 02/01/18 13:22 [place] [facility] [email or web address] Intravenous Solution Start Date 02/01/18 Start Time 13:22 End Date 02/01/18 End time 14:23 Total Infusion Time 61 Ketorolac Tromethamine (Toradol) 30 mg IVP STAT STA Stop: 02/01/18 12:38 Last Admin: 02/01/18 13:26 Dose: 30 mg MAR Pain Assessment Document 02/01/18 13:26 SF (Rec: 02/01/18 13:26 [email or web address] Pain Reassessment Is this a pain reassessment? Yes Sleep Is patient sleeping during reassessment? No Presence of Pain Presence of Pain Yes IVP Administration Document 02/01/18 13:26 SF (Rec: 02/01/18 13:26 [email or web address] Charges for Administration # of IVP Administrations 1 Ondansetron HCl (Zofran Inj) 8 mg IVP STAT STA Stop: 02/01/18 12:38 Last Admin: 02/01/18 13:25 Dose: 8 mg IVP Administration Document 02/01/18 13:25 SF (Rec: 02/01/18 13:25 SF [email or web address] Charges for Administration # of IVP Administrations 1 - Scribe Statement The provider has reviewed the documentation as recorded by the Scribe Harriet Rey Provider Scribe Attestation: All medical record entries made by the Scribe were at my direction and personally dictated by me. I have reviewed the chart and agree that the record accurately reflects my personal performance of the history, physical exam, medical decision making, and the department course for this patient. I have also personally directed, reviewed, and agree with the discharge instructions and disposition. Disposition/Present on Arrival - Present on Arrival Any Indicators Present on Arrival: No History of DVT/PE: No History of Uncontrolled Diabetes: No Urinary Catheter: No History of Decub. Ulcer: No History Surgical Site Infection Following: None - Disposition Have Diagnosis and Disposition been Completed?: Yes Diagnosis: Nephrolithiasis, Constipation Disposition: HOME/ ROUTINE Disposition Time: 14:04 Patient Plan: Discharge Condition: STABLE Discharge Instructions (ExitCare): Kidney Stones in Adults, Constipation, Adult (DC) Prescriptions: Docusate [Colace] 100 mg PO BID #30 cap Polyethylene Glycol 3350 [Miralax] 17 gm PO DAILY #238 gm Forms: [employer] (Cameroonian)
[2018-02-01 12:55] LABS: URINE BILIRUBIN NEGATIVE (NEGATIVE); URINE BLOOD NEGATIVE (NEGATIVE); URINE GLUCOSE (UA) 100 mg/dL (NEGATIVE); URINE LEUKOCYTE ESTERASE SMALL Leu/uL (NEGATIVE); URINE PROTEIN TRACE mg/dL (<30 mg/dL)
[2018-02-01 12:56] LABS: URINE APPEARANCE CLEAR (CLEAR); URINE COLOR YELLOW (YELLOW)
[2018-02-01 12:59] LABS: HCG,QUALITATIVE URINE NEGATIVE (NEGATIVE)
[2018-02-01 13:05] LABS: URINE AMORPHOUS SEDIMENT FEW; URINE BACTERIA MANY (NEG); URINE RBC 0 - 2 /hpf (0-2)
[2018-02-01 13:09] LABS: BASO # 0.01 K/mm3 (0.0-2.0); BASO % 0.2 % (0.0-3.0); EOS # 0.1 (0.0-0.7); EOS % 1.1 % (1.5-5.0); GRAN # 3.41 (1.4-6.5); GRAN % 75.7 % (50.0-68.0); LYMPH # 0.8 (1.2-3.4); LYMPH % 18.6 % (22.0-35.0); MEAN CELL VOLUME 77.5 fl (80.0-105.0); MEAN CORPUSCULAR HGB CONC 34.8 g/dl (31.0-37.0); MEAN PLATELET VOLUME 9.2 fl (7.0-11.0); MONO # 0.2 (0.1-0.6); MONO % 4.4 % (1.0-6.0); RBC 4.45 10^6/uL (3.5-6.1); RED CELL DISTRIBUTION WIDTH 13.8 % (11.5-14.5); WHITE BLOOD COUNT 4.5 10^3/ul (4.5-11.0)
[2018-02-01 13:19] LABS: ALB/GLOB RATIO 1.5 (1.1-1.8); ALBUMIN 4.6 g/dL (3.0-4.8); ALT/SGPT 21 U/L (7-56); AST/SGOT 28 U/L (14-36); BLOOD UREA NITROGEN 10 mg/dL (7-21); CALCIUM 9.3 mg/dL (8.4-10.5); GFR AFRICAN-AMERICAN > 60; GFR NON-AFRICAN AMERICAN > 60; LIPASE 135 U/L (23-300)
--- NOTE | 2018-02-01 13:54 | CT ---
PROCEDURE: CT Abdomen and Pelvis without intravenous contrast HISTORY: R flank pain COMPARISON: None. TECHNIQUE: Without contrast.. Contrast Dose: Radiation dose: Total exam DLP = Total exam DLP = 218 mGy-cm. This CT exam was performed using one or more of the following dose reduction techniques: Automated exposure control, adjustment of the mA and/or kV according to patient size, and/or use of iterative reconstruction technique. FINDINGS: LOWER THORAX: Unremarkable. LIVER: Unremarkable. No gross lesion or ductal dilatation. GALLBLADDER AND BILE DUCTS: Unremarkable. PANCREAS: Unremarkable. No gross lesion or ductal dilatation. SPLEEN: Unremarkable. ADRENALS: Unremarkable. No mass. KIDNEYS AND URETERS: There several small stones in the right kidney measuring 3 mm or less. There are no ureteral stones demonstrated. There is a phlebolith adjacent to the right distal ureter. There is no hydronephrosis. VASCULATURE: Unremarkable. No aortic aneurysm. BOWEL: Unremarkable. No obstruction. No gross mural thickening. APPENDIX: Unremarkable. Normal appendix. PERITONEUM: Unremarkable. No free fluid. No free air. LYMPH NODES: Unremarkable. No enlarged lymph nodes. BLADDER: Unremarkable. REPRODUCTIVE: Unremarkable. BONES: No acute fracture. OTHER FINDINGS: None. IMPRESSION: Right-sided nephrolithiasis. No evidence of urolithiasis. No acute intra-abdominal findings.
[2018-02-01 14:34] VITALS: BP 117/80; PULSE 89; RESP 17; O2SAT 100
== END 2018-02-01 14:20 | disposition home or self-care (01) ==
LOC: ED 11:46
DX: N20.0 Calculus of kidney (principal); K59.00 Constipation, unspecified
CPT/HCPCS: 74176; 80053; 81001; 83690; 84703; 85025; 87086; 96361; 96374; 96375; 99284; J1885; J2405; J7040